=== PATIENT | female | born 1950 | race African-American/Black ===

== ENCOUNTER 2019-06-05 14:25 | Observation (INO) | payer MEDICARE ==
[~2019-06-05] VITALS: Ht 182.9 cm; Wt 106.6 kg
[~2019-06-05 14:25] MED LIST: ASPIR 8181 MG PO; ASPIRIN325 MG PO; CLOPIDOGREL75 MG PO; CRESTOR10 MG PO; FLUDROCORTISON0.1 MG PO; LANTUS 3ML100 UNITS/ SC; LYRICA25 MG PO; METOPROLOL SUCC25 MG PO; MIDODRINE HCL10 MG PO; NEPHRO-VITE TABL1 EA PO; PANTOPRAZOLE SO40 MG PO; RANEXA500 MG PO; RENA-VITE RX T1 EACH PO; RENVELA800 MG PO; SENSIPAR30 MG PO; ZOFRAN ODT4 MG SL; ZOFRAN4 MG PO
[2019-06-05 15:39] LABS: BASOPHILS % 0.4 % (0.0-1.0); EOSINOPHILS # (AUTO) 0.2 (0.0-0.4); EOSINOPHILS % 3.1 % (0.0-6.0); HEMATOCRIT 24.4 % (34.2-44.1); LYMPHOCYTES # (AUTO) 0.5 (1.0-3.2); LYMPHOCYTES % 9.8 % (18.0-39.1); MEAN CORPUSCULAR HEMOGLOBIN 29.3 pg (28-32); MEAN CORPUSCULAR HGB CONC 28.7 g/dL (31-35); MEAN CORPUSCULAR VOLUME 102.1 fL (81-99); MONOCYTES # (AUTO) 0.4 (0.2-0.8); MONOCYTES % 7.5 % (4.4-11.3); NEUTROPHILS # (AUTO) 4.1 (2.1-6.9); NEUTROPHILS % 78.8 % (38.7-80.0); PLATELET COUNT 206 x10e3/uL (140-360); RED BLOOD COUNT 2.39 x10e6/uL (3.6-5.1); RED CELL DISTRIBUTION WIDTH 16.9 % (11.7-14.4)
[2019-06-05 16:05] LABS: ALBUMIN 3.5 g/dL (3.5-5.0); ALBUMIN/GLOBULIN RATIO 1.1 (0.8-2.0); ANION GAP 12.3 mmol/L (8-16); CALCIUM 8.5 mg/dL (8.4-10.2); CREATININE, SERUM 5.53 mg/dL (0.57-1.11); POTASSIUM 4.3 mmol/L (3.5-5.1)
[2019-06-05] MEDS ORDERED: SODIUM CHLORIDE 0.9% 250ML 250 ML IV ONE (16:15)
[2019-06-05] MEDS ORDERED: SODIUM CHLORIDE FLUSH 10 ML SYR IV PRN (16:45)
[2019-06-05] MEDS ORDERED: ONDANSETRON HCL INJ 2MG/ML 2ML 2 MG/ML VIAL IV PRN (16:45)
--- NOTE | 2019-06-05 18:02 | Diagnostic Imaging Report ---
EXAMINATION: CHEST SINGLE (PORTABLE) COMPARISON: Report of chest x-ray performed 03/20/2009 INDICATION: Decreased hemoglobin ^SOB DISCUSSION: Frontal view of the chest obtained at 1744 hours. HEART AND MEDIASTINUM: The heart is enlarged. The thoracic aorta is mildly tortuous LINES: None. LUNGS: Central pulmonary vasculature is mildly prominent. The lungs are well inflated and clear. No pneumonia or pulmonary edema. PLEURA: No pleural effusion or pneumothorax. BONES AND SOFT TISSUES: Median sternotomy wires appear intact. The soft tissues are normal. IMPRESSION: Cardiomegaly and central pulmonary vascular congestion. This may be acute or chronic. No evidence of CHF. No infiltrates. Signed by: Dr. Ulysses Concepcion MD on 06/05/2019 5:59 PM
[2019-06-05 22:25] VITALS: BP 151/65
[2019-06-05 23:30] VITALS: BP 151/65
--- NOTE | 2019-06-06 00:21 | NUR ---
Spoke to luna with [facility] [phone], patient to have hemodialysis 06/06/19 to received 2 units of PRBCs.
[2019-06-06 02:23] VITALS: BP 151/65
[2019-06-06 04:00] VITALS: BP 149/63
[2019-06-06 06:55] LABS: BASOPHILS % 0.4 % (0.0-1.0); EOSINOPHILS # (AUTO) 0.2 (0.0-0.4); EOSINOPHILS % 3.7 % (0.0-6.0); LYMPHOCYTES # (AUTO) 0.6 (1.0-3.2); LYMPHOCYTES % 10.7 % (18.0-39.1); MEAN CORPUSCULAR HEMOGLOBIN 29.3 pg (28-32); MONOCYTES # (AUTO) 0.4 (0.2-0.8); MONOCYTES % 8.1 % (4.4-11.3); NEUTROPHILS # (AUTO) 4.2 (2.1-6.9); NEUTROPHILS % 76.9 % (38.7-80.0); PLATELET COUNT 143 x10e3/uL (140-360); RED BLOOD COUNT 2.05 x10e6/uL (3.6-5.1); RED CELL DISTRIBUTION WIDTH 16.6 % (11.7-14.4)
[2019-06-06 07:03] LABS: HEMATOCRIT 20.7 % (34.2-44.1)
[2019-06-06 08:17] VITALS: BP 123/56
[2019-06-06 09:00] VITALS: BP 123/56
[2019-06-06] MEDS ORDERED: SODIUM CHLORIDE 0.9% 1000ML 2,000 ML ONE (09:54)
[2019-06-06 11:54] VITALS: BP 145/57
--- NOTE | 2019-06-06 13:25 | NUR ---
Done with 2 units of blood with dialysis , no adverse reaction noted, Dr Lisa Mcgee here for rounds
--- NOTE | 2019-06-06 14:34 | NUR ---
Patient discharged home, no distress noted, daughter at bed side, transported via wheelchair to [facility]
--- NOTE | 2019-06-06 17:07 | Consultation ---
DATE OF CONSULTATION: 06/06/2019 REQUESTING PHYSICIAN: Bharat Mcgee MD. REASON FOR CONSULTATION: ESRD. Thank for allowing us to participate in Ms. Ambriz's care. HISTORY OF PRESENT ILLNESS: This is a 69-year-old female with history of diabetes, hypertension, peripheral vascular disease, and end-stage renal disease. Apparently has some trouble with the issues of bleeding both from her access and potentially a GI bleed, came with a hemoglobin of 6. She was originally instructed by her outpatient clinic to go to the ER because of this, there was some dyspnea. Currently, she is feeling better. Dialysis was performed to allow for PRBC transfusion safely. She tolerated without any problems. She normally dialyzes Saturday, Saturday, Saturday. PAST MEDICAL HISTORY: ESRD, anemia of CKD, hypertension, type 2 diabetes, peripheral vascular disease, right leg angioplasty, pending vascular exam of left leg secondary to hyperparathyroidism although she tells me her phosphorus is controlled. SOCIAL HISTORY: Does not abuse alcohol or smoke. FAMILY HISTORY: Diabetes. REVIEW OF SYSTEMS: CONSTITUTIONAL: Dyspnea. No fever or weakness. VASCULAR: Some bleeding from the access post dialysis for which an angiogram is pending of the fistula. GI: Denies nausea, vomiting. No definite hematochezia. RESPIRATORY: Dyspnea is better after blood transfusion. Rest of review is negative. PHYSICAL EXAMINATION: GENERAL: Lying in bed, no distress. Temperature 97.8, pulse 80, blood pressure 145/57. HEENT: Atraumatic. NECK: Unable to see JVD. CHEST: Clear at this time. Bilateral breath sounds equal. CARDIAC: Normal heart tones. Rhythm sounds regular. EXTREMITIES: 1 to 2+ edema on the right with diabetic shoe. Left shows trace to 1+ edema. ABDOMEN: Benign. NEUROLOGIC: Alert, appropriate. Speech is normal. VASCULAR: Pain right upper extremity AV fistula. LABORATORY DATA: Hemoglobin is 6 status post blood transfusion. K 5.3, creatinine 5.53, BUN 27, albumin is 3.5. ASSESSMENT: 1. End-stage renal disease. 2. Pending GI evaluation. 3. Anemia of chronic kidney disease, concern for bleeding issues. 4. Underlying diabetic hypertensive end-organ damage. PLAN: 1. Hemodialysis performed today. Blood transfusion is given. Please see my orders for details. 2. Get back to Saturday, Saturday, Saturday schedule unless can be discharged from a GI standpoint. We will follow along. MD LAVELL Scott/SHANELLE /[id number]
== END 2019-06-06 14:28 | disposition home or self-care (01) ==
LOC: ER 14:25 → ERHOLD 16:41 → MED/SURG2 22:28
DX: I12.0 Hypertensive chronic kidney disease with stage 5 chronic kidney disease or end stage renal disease (principal); E11.22 Type 2 diabetes mellitus with diabetic chronic kidney disease; N18.6 End stage renal disease; Z99.2 Dependence on renal dialysis; Z79.4 Long term (current) use of insulin; D63.1 Anemia in chronic kidney disease; E11.51 Type 2 diabetes mellitus with diabetic peripheral angiopathy without gangrene; E21.3 Hyperparathyroidism, unspecified
CPT/HCPCS: 36415 ×2; 71045; 80053; 82948; 85025 ×2; 86704; 86706; 86707; 86850; 86900; 86920; 87340; 87350; 99284; G0378 ×2; J7030; P9016

== ENCOUNTER 2019-07-10 15:17 | Observation (INO) | payer MEDICARE ==
[~2019-07-10] VITALS: Ht 157.5 cm; Wt 106.6 kg
--- OUTSIDE RECORDS SUMMARY | 2019-07-10 15:21 | XMS REPORT ---
Author Author [facility] Organization [facility] Address Unknown Phone Unavailable Care Team Providers Care Drop Press Hand Name Role Phone REBA (NON STAFF) PRIETO SWENSON MARIA L STERLING Unavailable Unavailable Payers Payer Name Policy Type Policy Number Effective Date Expiration Date [facility] [id number] 2019 00:00:00 Medicare A & B [id number] 2006 00:00:00 [facility] [id number] 2019 00:00:00 Medicare A & B [id number] 2006 00:00:00 Problems Condition Name Condition Details Condition Category Status Onset Date Resolution Date Last Treatment Date Treating Clinician Comments Congestive heart failure CHF (congestive heart failure) Problem Active 2014-01-08 00:00:00 Chest pain Chest pain Problem Active 2014-01-08 00:00:00 Gastrointestinal hemorrhage GI bleed Problem Active 2014-01-08 00:00:00 Allergies, Adverse Reactions, Alerts Allergy Name Allergy Type Status Severity Reaction(s) Onset Date Inactive Date Treating Clinician Comments Fentanyl Allergy to Substance Active Unknown HALLUCINATION 2019-04-03 00:00:00 Midazolam Allergy to Substance Active Unknown HALLUCINATION 2019-04-03 00:00:00 Medications Ordered Medication Name Filled Medication Name Start Date Stop Date Current Medication? Ordering Clinician Indication Dosage Frequency Signature (SIG) Comments Components Aspirin (Aspir 81) 81 Mg Tablet. Aspirin (Aspir 81) 81 Mg Tablet. Yes 81 Daily Clopidogrel Bisulfate (Clopidogrel) 75 Mg Tablet Clopidogrel Bisulfate (Clopidogrel) 75 Mg Tablet Yes 75 Daily Fludrocortisone Acetate 0.1 Mg Tab Fludrocortisone Acetate 0.1 Mg Tab Yes .1 Twice A Day Insulin Glargine (Lantus 3ML Pen) 100 Units/1 Ml Inj Insulin Glargine (Lantus 3ML Pen) 100 Units/1 Ml Inj Yes 15 Bedtime Pregabalin (Lyrica) 25 Mg Cap Pregabalin (Lyrica) 25 Mg Cap Yes 25 Twice A Day Sevelamer Hcl (Renvela) 800 Mg Tab Sevelamer Hcl (Renvela) 800 Mg Tab Yes 4 Three Times A Day Vit B Cmplx 3/Fa/Vit C/Biotin (Pennie-Sonny Rx Tablet) 1 Each Tablet Vit B Cmplx 3/Fa/Vit C/Biotin (Pennie-Sonny Rx Tablet) 1 Each Tablet Yes 1 Daily Aspirin 325 Mg Tablet, 325 Mg Oral Aspirin 325 Mg Tablet, 325 Mg Oral 2019-04-03 00:00:00 No 325 Daily Cinacalcet Hcl (Sensipar) 30 Mg Tablet, 30 Mg Oral Cinacalcet Hcl (Sensipar) 30 Mg Tablet, 30 Mg Oral 2019-04-03 00:00:00 No 30 Daily Folic Acid/Cyanocob/Pyridoxine (Nephro-Sonny Tablet) 1 Ea Tab, 1 Tab Oral Folic Acid/Cyanocob/Pyridoxine (Nephro-Sonny Tablet) 1 Ea Tab, 1 Tab Oral 2019-04-03 00:00:00 No 1 Daily Metoprolol Succinate 25 Mg Tab.er.24h, 25 Mg Oral Metoprolol Succinate 25 Mg Tab.er.24h, 25 Mg Oral 2019-04-03 00:00:00 No 25 Twice A Day Midodrine Hcl 10 Mg Tablet, 10 Mg Oral Midodrine Hcl 10 Mg Tablet, 10 Mg Oral 2019-04-03 00:00:00 No 10 Every 12 Hours Ondansetron (Zofran Odt) 4 Mg Tab.rapdis, 4 Mg Sublingual Ondansetron (Zofran Odt) 4 Mg Tab.rapdis, 4 Mg Sublingual 2019-04-03 00:00:00 No 4 Every 8 Hours as needed for Nausea Pantoprazole Sodium (Protonix) 40 Mg Tablet.dr, 40 Mg Oral Pantoprazole Sodium (Protonix) 40 Mg Tablet.dr, 40 Mg Oral 2019-04-03 00:00:00 No 40 Daily Ranolazine (Ranexa) 500 Mg Tabsr, 500 Mg Oral Ranolazine (Ranexa) 500 Mg Tabsr, 500 Mg Oral 2019-04-03 00:00:00 No 500 Twice A Day Ranolazine (Ranexa) 500 Mg Tabsr, 500 Mg Oral Ranolazine (Ranexa) 500 Mg Tabsr, 500 Mg Oral 2019-04-03 00:00:00 No 500 Twice A Day Rosuvastatin Calcium (Crestor) 10 Mg Tab, 10 Mg Oral Rosuvastatin Calcium (Crestor) 10 Mg Tab, 10 Mg Oral 2019-04-03 00:00:00 No 10 Bedtime Ondansetron Hcl (Zofran*) 4 Mg Tablet, 4 Mg Oral Ondansetron Hcl (Zofran*) 4 Mg Tablet, 4 Mg Oral 2014-01-09 00:00:00 No 4 Every 8 Hours Procedures and Interventions Procedure Date / Time Performed Performing Clinician ILIAC REVASC W/STENT 2019-04-07 00:00:00 KALEN GEE FEM/POPL REVASC W/STENT 2019-04-07 00:00:00 KALEN GEE CONTRAST EXAM ABDOMINL AORTA 2019-04-07 00:00:00 KALEN GEE ARTERY X-RAYS ARMS/LEGS 2019-04-07 00:00:00 KALEN GEE HEMODIALYSIS ONE EVALUATION 2019-04-07 00:00:00 ORIANA GUY Encounters Start Date/Time End Date/Time Encounter Type Admission Type Attending Clinicians Care Facility Care Department Encounter ID 2019-06-05 16:41:00 2019-06-06 14:28:00 Discharged Inpatient (obs) 1 MARIA L STERLING [facility] [id number] 2019-04-07 20:28:00 2019-04-08 15:19:00 Discharged Inpatient (obs) [facility] [id number] Results Test Description Test Time Test Comments Text Results Atomic Results Result Comments Bedside Glucose 2019-06-06 12:14:00 Bedside Glucose (test tcev=43358-5) 217 70-120 Meter ID: [id number] Blood Gcrjx5311-83-62 07:03:00* Test Item Value Reference Range Comments White Blood Count (test znmr=7577-6) 5.40 4.8-10.8 Red Blood Gborm2181-68-24 07:03:00* Test Item Value Reference Range Comments Red Blood Count (test xlnn=608-4) 2.05 3.6-5.1 Xbhdwohlhx6491-84-55 07:03:00* Test Item Value Reference Range Comments Hemoglobin (test cwvk=73547-4) 6.0 12.0-16.0 Results repeated and called to DINH WOLF RN at 0702 on 06/06/19 by Mary Ellen Forman. Read back and verified.Uchzectodz6632-71-12 07:03:00* Test Item Value Reference Range Comments Hematocrit (test yoqo=3547-4) 20.7 34.2-44.1 Results called to DINH WOLF RN at 0702 on 06/06/19 by Mary Ellen Forman. RB O K.Mean Corpuscular Evnmff3789-89-55 07:03:00* Test Item Value Reference Range Comments Mean Corpuscular Volume (test xiub=398-6) 101.0 81-99 Mean Corpuscular Xelffrindy6080-54-44 07:03:00* Test Item Value Reference Range Comments Mean Corpuscular Hemoglobin (test nbfp=442-3) 29.3 28-32 Mean Corpuscular Hemoglobin Zzxuklv4911-36-48 07:03:00* Test Item Value Reference Range Comments Mean Corpuscular Hemoglobin Concent (test dmrl=496-1) 29.0 31-35 Red Cell Distribution Ixocp7955-59-28 07:03:00* Test Item Value Reference Range Comments Red Cell Distribution Width (test zafq=96080-4) 16.6 11.7-14.4 Platelet Seiet2182-57-91 07:03:00* Test Item Value Reference Range Comments Platelet Count (test bexf=684-4) 143 140-360 Neutrophils (%) (Auto)2019-06-06 07:03:00* Test Item Value Reference Range Comments Neutrophils (%) (Auto) (test fndb=94237-8) 76.9 38.7-80.0 Lymphocytes (%) (Auto)2019-06-06 07:03:00* Test Item Value Reference Range Comments Lymphocytes (%) (Auto) (test iein=567-1) 10.7 18.0-39.1 Monocytes (%) (Auto)2019-06-06 07:03:00* Test Item Value Reference Range Comments Monocytes (%) (Auto) (test odsw=5349-1) 8.1 4.4-11.3 Eosinophils (%) (Auto)2019-06-06 07:03:00* Test Item Value Reference Range Comments Eosinophils (%) (Auto) (test tvmz=143-4) 3.7 0.0-6.0 Basophils (%) (Auto)2019-06-06 07:03:00* Test Item Value Reference Range Comments Basophils (%) (Auto) (test fghi=897-0) 0.4 0.0-1.0 IM GRANULOCYTES %2019-06-06 07:03:00* Test Item Value Reference Range Comments IM GRANULOCYTES % (test code=IM GRANULOCYTES %) 0.2 0.0-1.0 Neutrophils # (Auto)2019-06-06 07:03:00* Test Item Value Reference Range Comments Neutrophils # (Auto) (test jrjl=843-9) 4.2 2.1-6.9 Lymphocytes # (Auto)2019-06-06 07:03:00* Test Item Value Reference Range Comments Lymphocytes # (Auto) (test jfcr=07689-9) 0.6 1.0-3.2 Monocytes # (Auto)2019-06-06 07:03:00* Test Item Value Reference Range Comments Monocytes # (Auto) (test bats=535-0) 0.4 0.2-0.8 Eosinophils # (Auto)2019-06-06 07:03:00* Test Item Value Reference Range Comments Eosinophils # (Auto) (test airx=420-2) 0.2 0.0-0.4 Basophils # (Auto)2019-06-06 07:03:00* Test Item Value Reference Range Comments Basophils # (Auto) (test qulb=803-0) 0.0 0.0-0.1 Absolute Immature Granulocyte (iiho1376-71-47 07:03:00* Test Item Value Reference Range Comments Absolute Immature Granulocyte (auto (test code=Absolute Immature Granulocyte (auto) 0.01 0-0.1 CHEST SINGLE (PORTABLE)2019-06-05 17:57:00 [place] [address] Patient Name: CHAPARRITA STEPHENSON MR #: [id number] : 1950 Age/Sex: 69/F Req #: [id number] Adm Physician: MARIA L STERLING MD Ordered by: LYLY GAY NP Report #: [id number] Location: [facility] Room/Bed: [place] [address] Procedure: [id number] D X/CHEST SINGLE (PORTABLE) Exam Date: Exam Time: REPORT STATUS: Signed EXAMINATION: CHEST SINGLE (PORTABLE) COMPARISON: Report of chest x-ray performed 1 05/21/2008 INDICATION: Decreased hemoglobin SOB DISCUSSION: Fro ntal view of the chest obtained at 1744 hours. HEART AND MEDIASTINUM: The heart is enlarged. The thoracic aorta is mildly tortuous LINES: None. LUNGS: Central pulmonary vasculature is mildly prominent. The lungs are well inflated and clear. No pneumonia or pulmonary edema. PLEURA: No pleural effusion or pneumothorax. BONES AND SOFT TISSUES: Median sternotomy wires appear intact. The soft tissues are normal. IMPRESSION: Cardiomeg edouard and central pulmonary vascular congestion. This may be acute or chronic. N o evidence of CHF. No infiltrates. Signed by: Dr. Chava Concepcion MD on 06/05/2019 5:59 PM Dictated By: CHAVA CONCEPCION MD Electronically Norah d By: CHAVA CONCEPCION MD on 06/05/191758 Transcribed By: SANA on 06/05/191758 COPY TO: LYLY GAY MOLDING ROOM SUPERVISOR Sodium Qrmxw9444-04-05 16:06:00* Test Item Value Reference Range Comments Sodium Level (test mrll=4444-3) 138 136-145 Potassium Uvfey6729-44-84 16:06:00* Test Item Value Reference Range Comments Potassium Level (test qocv=2497-2) 4.3 3.5-5.1 Chloride Csqdf1914-70-18 16:06:00* Test Item Value Reference Range Comments Chloride Level (test juzx=3391-5) 102 98-107 Carbon Dioxide Naooi1724-29-49 16:06:00* Test Item Value Reference Range Comments Carbon Dioxide Level (test fsgq=2972-5) 28 22-29 Anion Whr6439-95-42 16:06:00* Test Item Value Reference Range Comments Anion Gap (test czxa=61159-3) 12.3 8-16 Blood Urea Xmzjzekf3951-10-54 16:06:00* Test Item Value Reference Range Comments Blood Urea Nitrogen (test yjgo=5191-5) 27 7-26 Xsnqfdrhye8332-84-67 16:06:00* Test Item Value Reference Range Comments Creatinine (test jnts=8777-7) 5.53 0.57-1.11 BUN/Creatinine Tbicj4224-49-04 16:06:00* Test Item Value Reference Range Comments BUN/Creatinine Ratio (test erki=7458-6) 5 6-25 Estimat Glomerular Filtration Jnwh7447-70-27 16:06:00* Test Item Value Reference Range Comments Estimat Glomerular Filtration Rate (test slca=242124676) 9 >60 Ranges were taken from the National Kidney Disease Education Program and the [facility] [employer] literature.Reference ranges:60 or greater: Awhwtz14-82 ( for 3 consecutive months): Chronic kidney disease 15 or less: Kidney failure Glucose Nvrxq7198-70-66 16:06:00* Test Item Value Reference Range Comments Glucose Level (test mfgx=IGI2394) 212 74-118 Calcium Vbpqz9861-96-13 16:06:00* Test Item Value Reference Range Comments Calcium Level (test gvhq=73011-6) 8.5 8.4-10.2 Total Riiapiwiz2136-10-10 16:06:00* Test Item Value Reference Range Comments Total Bilirubin (test xmli=5189-5) 0.3 0.2-1.2 Aspartate Amino Transf (AST/SGOT)2019-06-05 16:06:00* Test Item Value Reference Range Comments Aspartate Amino Transf (AST/SGOT) (test code=Aspartate Amino Transf (AST/SGOT)) 49 5-34 Alanine Aminotransferase (ALT/SGPT)2019-06-05 16:06:00* Test Item Value Reference Range Comments Alanine Aminotransferase (ALT/SGPT) (test xblm=0013-1) 25 0-55 Total Kgwuymm6085-95-82 16:06:00* Test Item Value Reference Range Comments Total Protein (test fquv=1776-8) 6.8 6.5-8.1 Rmjecae0127-33-26 16:06:00* Test Item Value Reference Range Comments Albumin (test jwdo=1225-2) 3.5 3.5-5.0 Vfwsjnwh2263-55-07 16:06:00* Test Item Value Reference Range Comments Globulin (test prtg=83279-8) 3.3 2.3-3.5 Albumin/Globulin Fsxfl6786-21-77 16:06:00* Test Item Value Reference Range Comments Albumin/Globulin Ratio (test tbsb=6714-6) 1.1 0.8-2.0 Alkaline Bcwqoisxxcj8712-75-28 16:06:00* Test Item Value Reference Range Comments Alkaline Phosphatase (test usvm=0563-1) 75 40-150 Hepatitis Be Yrzmzypt2022-29-16 23:08:00* Test Item Value Reference Range Comments Hepatitis Be Antibody (test vpbu=47654-6) Positive Negative Performed at: [address] [id number] Product Specialist: Kiko Mars MD, Phone: [phone] B Core Total Yitjqqkh2757-50-25 11:16:00* Test Item Value Reference Range Comments Hepatitis B Core Total Antibody (test qtwu=39504-7) Positive Negative Hepatitis B Surface Ctlmkvy4244-75-22 11:16:00* Test Item Value Reference Range Comments Hepatitis B Surface Antigen (test acrq=5200-9) Negative Negative Hepatitis B Core IgM Acxicwvl0032-25-19 11:16:00* Test Item Value Reference Range Comments Hepatitis B Core IgM Antibody (test zkov=69520-6) Negative Negative Performed at: - [facility] [address] [id number] Director: Nico Marshall MD, Phone: [phone]
[2019-07-10 17:09] LABS: BASOPHILS % 0.2 % (0.0-1.0); EOSINOPHILS % 0.3 % (0.0-6.0); LYMPHOCYTES # (AUTO) 0.6 (1.0-3.2); LYMPHOCYTES % 4.5 % (18.0-39.1); MEAN CORPUSCULAR HEMOGLOBIN 28.2 pg (28-32); MEAN CORPUSCULAR HGB CONC 29.4 g/dL (31-35); MEAN CORPUSCULAR VOLUME 96.2 fL (81-99); MONOCYTES # (AUTO) 0.8 (0.2-0.8); MONOCYTES % 6.4 % (4.4-11.3); NEUTROPHILS # (AUTO) 10.7 (2.1-6.9); PLATELET COUNT 168 x10e3/uL (140-360); RED BLOOD COUNT 2.09 x10e6/uL (3.6-5.1); RED CELL DISTRIBUTION WIDTH 16.6 % (11.7-14.4)
[2019-07-10 17:10] LABS: HEMATOCRIT 20.1 % (34.2-44.1); HEMOGLOBIN 5.9 g/dL (12.0-16.0)
[2019-07-10] MEDS ORDERED: SODIUM CHLORIDE 0.9% 250ML 250 ML IV ONE (17:15)
[2019-07-10 17:18] LABS: INR 1.23; PARTIAL THROMBOPLASTIN TIME 38.1 seconds (23.8-35.5); PROTHROMBIN TIME 16.3 seconds (11.9-14.5)
[2019-07-10 17:27] LABS: ALBUMIN 3.4 g/dL (3.5-5.0); ANION GAP 17.2 mmol/L (8-16); CALCIUM 9.7 mg/dL (8.4-10.2); CREATININE, SERUM 9.43 mg/dL (0.57-1.11); POTASSIUM 4.2 mmol/L (3.5-5.1)
--- NOTE | 2019-07-10 20:10 | NUR ---
1st unit of blood started. v.s.s
--- NOTE | 2019-07-10 21:45 | NUR ---
received patient from ER patient is awake and talking. patient has been helped into the bed. bed is in the lowest position and call light is within reach. Will continue to monitor patient.
--- NOTE | 2019-07-10 22:10 | NUR ---
1 unit of blood is done transfusing. No adverse reaction noted.
[2019-07-10 22:37] VITALS: BP 152/55
[2019-07-10 22:43] VITALS: BP 152/55
[2019-07-10] MEDS ORDERED: GABAPENTIN300 MG PO (23:02)
[2019-07-10] MEDS ORDERED: ATORVASTATIN CA20 MG PO (23:02)
[2019-07-10] MEDS: INSULIN GLARGINE 100 UNITS/ML VIAL SQ SCH (23:48)
[2019-07-10] MEDS ORDERED: SODIUM CHLORIDE 0.9% 250ML 250 ML ONE (23:58)
[2019-07-11] VITALS (8 sets, daily range): BP systolic 134–152; BP diastolic 60–69
--- NOTE | 2019-07-11 | NUR ---
second unit of blood is transfusing. no adverse reaction noted. will continue to monitor patients blood infusion process.
[2019-07-11] MEDS: GABAPENTIN 300 MG CAP PO SCH ×4 (00:28→22:10)
--- NOTE | 2019-07-11 02:55 | NUR ---
second unit of blood is done transfusing. No adverse reactions noted.
[2019-07-11 05:50] LABS: BASOPHILS % 0.2 % (0.0-1.0); EOSINOPHILS # (AUTO) 0.2 (0.0-0.4); EOSINOPHILS % 1.7 % (0.0-6.0); HEMOGLOBIN 7.3 g/dL (12.0-16.0); LYMPHOCYTES # (AUTO) 0.5 (1.0-3.2); MEAN CORPUSCULAR HEMOGLOBIN 28.3 pg (28-32); MEAN CORPUSCULAR HGB CONC 30.4 g/dL (31-35); MONOCYTES # (AUTO) 0.7 (0.2-0.8); MONOCYTES % 6.9 % (4.4-11.3); NEUTROPHILS # (AUTO) 8.4 (2.1-6.9); NEUTROPHILS % 85.9 % (38.7-80.0); PLATELET COUNT 139 x10e3/uL (140-360); RED BLOOD COUNT 2.58 x10e6/uL (3.6-5.1); RED CELL DISTRIBUTION WIDTH 15.7 % (11.7-14.4)
[2019-07-11 06:15] LABS: ANION GAP 13.7 mmol/L (8-16); CALCIUM 9.4 mg/dL (8.4-10.2); CREATININE, SERUM 10.14 mg/dL (0.57-1.11); POTASSIUM 4.7 mmol/L (3.5-5.1)
[2019-07-11 06:33] LABS: ALBUMIN 2.9 g/dL (3.5-5.0)
--- NOTE | 2019-07-11 07:15 | NUR ---
RECEIVED REPORT FROM OPERATIONS INTELLIGENCE NURSE, PATIENT IS SLEEPING IN BED, NO DISTRESS NOTED.
[2019-07-11] MEDS ORDERED: GABAPENTIN 300 MG CAP PO SCH (09:00)
[2019-07-11] MEDS: ASPIRIN 81 MG CHEW TAB PO SCH (10:07)
[2019-07-11] MEDS: SEVELAMER CARBONATE 800 MG TAB PO SCH ×3 (10:07→22:10)
[2019-07-11] MEDS: CLOPIDOGREL BISULFATE 75 MG TAB PO SCH (10:07)
[2019-07-11] MEDS: FLUDROCORTISONE ACETATE 0.1 MG TAB PO SCH ×2 (10:07→16:03)
[2019-07-11 11:36] LABS: BASOPHILS % 0.2 % (0.0-1.0); EOSINOPHILS # (AUTO) 0.2 (0.0-0.4); EOSINOPHILS % 1.7 % (0.0-6.0); HEMATOCRIT 26.3 % (34.2-44.1); HEMOGLOBIN 8.2 g/dL (12.0-16.0); LYMPHOCYTES # (AUTO) 0.6 (1.0-3.2); LYMPHOCYTES % 5.7 % (18.0-39.1); MEAN CORPUSCULAR HGB CONC 31.2 g/dL (31-35); MEAN CORPUSCULAR VOLUME 92.9 fL (81-99); MONOCYTES # (AUTO) 0.6 (0.2-0.8); MONOCYTES % 5.9 % (4.4-11.3); NEUTROPHILS # (AUTO) 8.3 (2.1-6.9); NEUTROPHILS % 86.2 % (38.7-80.0); PLATELET COUNT 157 x10e3/uL (140-360); RED BLOOD COUNT 2.83 x10e6/uL (3.6-5.1); RED CELL DISTRIBUTION WIDTH 15.8 % (11.7-14.4)
--- NOTE | 2019-07-11 11:46 | Consultation ---
DATE OF CONSULTATION: 07/11/2019 Nephrology Consultation Note REASON FOR CONSULTATION: ESRD. REFERRING PHYSICIAN: ER physician. HISTORY OF PRESENT ILLNESS: This is a 69-year-old female with past medical history of ESRD on hemodialysis on a Saturday, Saturday, and Saturday schedule through the right chest PermCath with last dialysis almost 4 days ago, status post hysterectomy, knee replacement surgery, back surgery, diabetes mellitus, hypertension, CVA, coronary artery disease and right chest PermCath placement, who was admitted for possibly blood transfusion with a hemoglobin of close to 6. At the time of my examination, she appeared in no acute distress and denies any nausea, vomiting, headache, blurring of vision, chest pain, shortness of breath, abdominal pain, diarrhea, bleeding in the stools, urinary problems, skin rash, joint pains, or any focal weakness. PAST MEDICAL HISTORY: As above. PAST SURGICAL HISTORY: As above. PERSONAL AND SOCIAL HISTORY: No history of alcohol or tobacco. MEDICATIONS: See the medication sheet that was reviewed. PHYSICAL EXAMINATION: VITAL SIGNS: Blood pressure 152/67, respirations 18, heart rate 80, and temperature 98.9. HEENT: Head was atraumatic, normocephalic. Pupils are react to light. Mouth, oral mucosa was moist. NECK: Supple. CHEST: Fair air entry. HEART: S1, S2. ABDOMEN: Obese, but soft. Bowel sounds are positive. EXTREMITIES: Trace edema. GRANULIZING MACHINE OPERATOR: She was awake and alert. Cranial nerves are intact. No gross motor deficit noted. LABORATORY DATA: White cell count of 9.8, hemoglobin 7.3, it was 5.9 yesterday, hematocrit 24, and platelets 139. Sodium 138, potassium 4.7, chloride 97, CO2 of 32, BUN 62, and creatinine 10.1. Albumin 2.9. IMPRESSION: 1. End-stage renal disease, on hemodialysis on a Saturday, Saturday, and Saturday schedule with no significant volume overload or hyperkalemia. 2. Severe anemia, rule out gastrointestinal bleeding. PLAN: Strict I's and O's. Hepatitis surface antigen, CBC, and BMP in a.m. Epogen 10,000 units subcutaneously with every dialysis. Dialysis later today for 3.5 hours, 140 sodium, 35 bicarb, 2.5 potassium, 2.5 calcium, blood flow of 350, dialysis flow of 700 with UF of 2-3 as tolerated and she can receive 1-2 units of packed RBCs on dialysis as well. Further recommendations to follow. Thank you for the consultation. Bry Mitchell MD SA/SHANELLE /[id number]
[2019-07-11 11:52] LABS: ANION GAP 15.7 mmol/L (8-16); CALCIUM 9.6 mg/dL (8.4-10.2); CREATININE, SERUM 10.56 mg/dL (0.57-1.11); POTASSIUM 4.7 mmol/L (3.5-5.1)
--- NOTE | 2019-07-11 11:53 | NUR ---
CALLED [facility] TO NOTIFY THEM OF PATIENT. [facility] WILL CALL BACK WITH ESTIMATED TIME OF DIALYSIS TODAY.
--- NOTE | 2019-07-11 13:25 | NUR ---
LIVES AT HOME W/ FAMILY EMERGENCY CONTACT: DAUGHTER: ERINN COOPER [phone] PCP: PRIETO ALEJANDRA HEMODIALYSIS: HOME HEALTH: NONE, DME: NONE RETIRED DC PLAN: RETURN HOME W/ FAMILY WHEN MEDICALLY CLEARED
[2019-07-11] MEDS ORDERED: DEXTROSE 50% SYRINGE 50 ML IV PRN (16:45)
[2019-07-11] MEDS: INSULIN LISPRO 100 UNIT/1 ML 3ML VIAL SQ SCH ×2 (17:23→22:06)
[2019-07-11] MEDS ORDERED: SODIUM CHLORIDE 0.9% 1000ML 2,000 ML ONE (17:30)
[2019-07-11] MEDS ORDERED: EPOETIN ALFA-EPBX 10,000 UNIT/ML VIAL SC SCH (18:00)
--- NOTE | 2019-07-11 19:00 | NUR ---
PT EDUCATED ON NOTHING TO DRINK OR EAT AFTER MIDNIGHT FOR EGD PROCEDURE TOMORROW WITH DR. Trevin STERLING. PATIENT VERBALIZED UNDERSTANDING.
--- NOTE | 2019-07-11 19:27 | NUR ---
HYDROELECTRIC PLANT STRUCTURAL ENGINEER NOTIFIED OF PT HAVING EGD TOMORROW @[address] Trevin STERLING.
--- NOTE | 2019-07-11 19:27 | NUR ---
GAVE REPORT TO FAMILY LAW LEGAL ASSISTANT NURSE, PATIENT AWAKE IN BED, A&OX3, RECEIVING DIALYSIS. NO DISTRESS NOTED. BED LOW AND LOCKED, SIDE RAILS UPX2, CALL LIGHT WITHIN REACH
--- NOTE | 2019-07-11 19:27 | NUR ---
RECEIVED SHIFT REPORT FROM DAY RN. pT ALERT AND ORIENTED X3. RESTING IN SEMI-FOWLERS IN BED RECEIVING DIALYSIS. RESPIRATIONS ARE EVEN AND UNLABORED. HOB ELEVATED. REMAINS ON RA. CALL LIGHT WITHIN REACH. 18 G SL IN LEFT AC - INTACT AND FLUSHES EASILY. BED IN LOW POSITION. PT AWARE NPO AFTER 12 MN FOR EGD IN AM.
[2019-07-11] MEDS ORDERED: MIDAZOLAM HCL 2 MG/2 ML VIAL ONE (19:55)
[2019-07-11] MEDS ORDERED: NON-FORMULARY MEDICATION (Insulin Glargine (Lantus 3ML Pen) 20 UNITS) SC SCH (21:00)
[2019-07-11] MEDS ORDERED: INSULIN LISPRO 100 UNIT/1 ML 3ML VIAL SQ SCH (21:00)
[2019-07-11] MEDS: INSULIN GLARGINE 100 UNITS/ML VIAL SQ SCH (22:07)
[2019-07-11] MEDS: ATORVASTATIN 20 MG TAB PO SCH (22:10)
[2019-07-12] VITALS (8 sets, daily range): BP systolic 109–157; BP diastolic 54–66
--- NOTE | 2019-07-12 | NUR ---
PT C/O OF PAIN LEFT SIDE AFTER DIALYSIS. PAIN RESOLVED. TELE SR. WILL CONTINUE TO MONITOR FOR DISCOMFORT.
--- NOTE | 2019-07-12 06:31 | NUR ---
PT REPORT PAIN DECREASE AND ABLE TO GO TO SLEEP. CONSENT FOR EGD SIGNED. PT WANTING TO GET PROCEDURE DONE TODAY SO SHE CN GO HOME. SATURDAY SHE IS HAVING SURGERY ON HER RT FOOT. PT REQUESTED DR PORTER TO GIVE DAUGHTER- NAMES WRITTEN DOWN FOR PT.
[2019-07-12] MEDS: INSULIN LISPRO 100 UNIT/1 ML 3ML VIAL SQ SCH ×4 (07:30→22:06)
[2019-07-12 07:37] LABS: BASOPHILS % 0.3 % (0.0-1.0); EOSINOPHILS # (AUTO) 0.2 (0.0-0.4); EOSINOPHILS % 2.2 % (0.0-6.0); HEMATOCRIT 29.3 % (34.2-44.1); HEMOGLOBIN 8.9 g/dL (12.0-16.0); LYMPHOCYTES # (AUTO) 0.5 (1.0-3.2); LYMPHOCYTES % 7.2 % (18.0-39.1); MEAN CORPUSCULAR HEMOGLOBIN 28.4 pg (28-32); MEAN CORPUSCULAR HGB CONC 30.4 g/dL (31-35); MEAN CORPUSCULAR VOLUME 93.6 fL (81-99); MONOCYTES # (AUTO) 0.6 (0.2-0.8); MONOCYTES % 8.4 % (4.4-11.3); NEUTROPHILS # (AUTO) 5.7 (2.1-6.9); NEUTROPHILS % 81.5 % (38.7-80.0); PLATELET COUNT 177 x10e3/uL (140-360); RED BLOOD COUNT 3.13 x10e6/uL (3.6-5.1); RED CELL DISTRIBUTION WIDTH 15.5 % (11.7-14.4)
[2019-07-12 07:55] LABS: ALBUMIN/GLOBULIN RATIO 0.9 (0.8-2.0); ANION GAP 15.3 mmol/L (8-16); CALCIUM 9.5 mg/dL (8.4-10.2); CREATININE, SERUM 6.13 mg/dL (0.57-1.11); POTASSIUM 4.3 mmol/L (3.5-5.1)
[2019-07-12] MEDS: ASPIRIN 81 MG CHEW TAB PO SCH ×2 (08:32→11:57)
[2019-07-12] MEDS: DEXTROSE 5%/0.9% SOD CHL 1,000 ML IV SCH ×2 (08:32→21:35)
[2019-07-12] MEDS: GABAPENTIN 300 MG CAP PO SCH ×3 (08:32→22:12)
[2019-07-12] MEDS: FLUDROCORTISONE ACETATE 0.1 MG TAB PO SCH ×2 (08:32→11:57)
[2019-07-12] MEDS: SEVELAMER CARBONATE 800 MG TAB PO SCH ×3 (08:33→16:54)
[2019-07-12] MEDS: CLOPIDOGREL BISULFATE 75 MG TAB PO SCH ×2 (08:33→11:58)
--- NOTE | 2019-07-12 08:56 | NUR ---
WENT TO OR FOR EGD
[2019-07-12] MEDS ORDERED: PANTOPRAZOLE 40 MG 10ML VIAL IV NR (10:01)
[2019-07-12] MEDS: PANTOPRAZOLE 40 MG 10ML VIAL IV SCH ×2 (10:15→23:58)
--- NOTE | 2019-07-12 10:53 | Operative Report ---
DATE OF PROCEDURE: 07/12/2019 SURGEON: Donte Mcgee MD INDICATION FOR EGD: Anemia, history of melena. MEDICATIONS: The patient was done under MAC, please see anesthesiologist's note. PROCEDURE IN DETAIL: With the patient in left lateral decubitus position, a flexible fiberoptic Olympus therapeutic gastroscope was introduced into the esophagus under direct visualization without any difficulty. There was some patchy erythema noted in distal esophagus. The scope was then advanced with ease into the stomach, traversing a small sliding hiatal hernia. Some minute erosions were noted in the antrum of the stomach along with some patchy intense erythema and biopsies were obtained and sent to stain for H pylori. Minimally oozing arteriovenous malformation midbody, greater curvature was noted and that was fulgurated with size 10-[place]atorial [place] scope probe. Pylorus was of normal contour and shape was intubated with ease and the scope was advanced all the way to the second portion of the duodenum. An AVM was noted in the proximal second portion that was fulgurated, also size 10-[place]atorial [place] Gold probe. A minute ulcer was noted in the duodenal bulb without active bleeding or stigmata of recent hemorrhage. The scope was then withdrawn back into the stomach and retroflexed mucosa overlying the fundus and cardia appeared to be within normal limits. The scope was then straightened out and it was subsequently withdrawn and patient tolerated the procedure well. IMPRESSION: 1. Distal esophagitis, mild. 2. Small hiatal hernia. 3. Gastritis, erosive, antrum biopsied. 4. Minimally oozing arteriovenous malformation, midbody, greater curvature, fulgurated for the size 10-[place]atorial [place] Gold Probe with excellent hemostasis. 5. Duodenal bulb ulcer, minute without active bleeding or stigmata of recent hemorrhage. 6. 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 PLAN: Follow up histology. Initiate Protonix 40 mg one p.o. a.c. b.i.d. and Carafate 1 g p.o. a.c. t.i.d. and at bedtime. The patient will need a screening colonoscopy which can be done on an outpatient basis. Donte Mcgee MD [facility]/MODL /[id number] cc: Abhishek Reyes MD
[2019-07-12] MEDS: SUCRALFATE 1 GM TAB PO SCH ×3 (11:56→21:03)
--- NOTE | 2019-07-12 19:18 | NUR ---
BEDSIDE SHIFT REPORT RECEIVED FROM DAY RN. PT IS ALERT AND ORIENTED X3. RESPIRATIONS ARE EVEN AND UNLABORED. AV FISTULA ON RT UPPER ARM. SL 20G LEFT AC. TELE ON. CALL LIGHT WITHIN REACH. BED IN LOW POSITION. DIALYSIS IN AM THEN POSSIBLE DISCHARGE.
[2019-07-12] MEDS ORDERED: PROPOFOL IV EMULSION 10 MG/ML 20 ML VIAL ONE (19:34)
[2019-07-12] MEDS ORDERED: LIDOCAINE HCL 2% LOCAL INJ 5 ML SDV VIAL INJ ONE (19:34)
[2019-07-12] MEDS ORDERED: GLUCAGON FOR INJ 1 MG VIAL ONE (19:34)
[2019-07-12] MEDS: INSULIN GLARGINE 100 UNITS/ML VIAL SQ SCH (22:06)
[2019-07-12] MEDS: ATORVASTATIN 20 MG TAB PO SCH (22:12)
[2019-07-13] VITALS (8 sets, daily range): BP systolic 108–176; BP diastolic 54–77
--- NOTE | 2019-07-13 05:30 | NUR ---
dr francis made rounds this am and said pt could go home aftr dialysis today.
--- NOTE | 2019-07-13 06:26 | Discharge Summary ---
DISCHARGE DIAGNOSES: 1. Gastrointestinal bleed. 2. Anemia. 3. End-stage renal disease. 4. Diabetes. 5. Hypertension. 6. Hyperlipidemia. DISPOSITION: The patient was discharged home. The patient is to follow up in 1 to 2 weeks with her primary care physician. HISTORY OF PRESENT ILLNESS AND HOSPITAL COURSE: See hospital chart for full details. The patient is a lady, who came in with severe shortness of breath and fatigue, where she was found to be with symptomatic anemia with a hemoglobin of 5.9 with some non-melenic stools, so she was admitted. She was brought in and given transfusion with 2 units with significant improvement, resolution of all her symptoms. Post transfusion, hemoglobin was 8.9. She was seen by Dr. Donte Mcgee, who performed EGD, who found some gastritis as well as some AVMs that he fulgurated. She was discharged home with Protonix 40 mg b.i.d. The patient is to follow up with GI as well as her PCP in 1 to 2 weeks. Please see hospital chart for details. MD JEFRY Jacobs/SHANELLE /[id number]
--- NOTE | 2019-07-13 07:14 | NUR ---
bedside change of shift report received from AUGUST Mcwilliams. pt awake, alert, in stable condition. will continue to monitor.
[2019-07-13] MEDS: INSULIN LISPRO 100 UNIT/1 ML 3ML VIAL SQ SCH ×3 (07:30→17:14)
[2019-07-13] MEDS: DEXTROSE 5%/0.9% SOD CHL 1,000 ML IV SCH (10:55)
[2019-07-13] MEDS: SUCRALFATE 1 GM TAB PO SCH ×3 (11:02→17:48)
[2019-07-13] MEDS: SEVELAMER CARBONATE 800 MG TAB PO SCH (11:03)
[2019-07-13] MEDS: FLUDROCORTISONE ACETATE 0.1 MG TAB PO SCH (11:03)
[2019-07-13] MEDS: GABAPENTIN 300 MG CAP PO SCH (11:03)
[2019-07-13] MEDS: ASPIRIN 81 MG CHEW TAB PO SCH (11:04)
[2019-07-13] MEDS: CLOPIDOGREL BISULFATE 75 MG TAB PO SCH (11:04)
[2019-07-13] MEDS: PANTOPRAZOLE 40 MG 10ML VIAL IV SCH (11:05)
--- NOTE | 2019-07-13 13:06 | NUR ---
pt waiting to have dialysis; no flight engineer manager on site at this time for pt. paging Dr. Contreras regarding hemodialysis orders.
--- NOTE | 2019-07-13 14:09 | NUR ---
paging Dr. Contreras again. still no callback.
--- NOTE | 2019-07-13 14:57 | NUR ---
spoke with Dr. Contreras who states pt to have hemodialysis today; spoke with dialysis nurse who [facility].
--- NOTE | 2019-07-13 15:20 | NUR ---
[facility] regarding ETA of dialysis nurse. Addendum: 07/13/19 at 1522 by Jessie Mendez RN spoke with Luz who will page the on-call nurse. she was notified pt is pending discharge.
[2019-07-13] MEDS ORDERED: SEVELAMER CARBONATE 800 MG TAB PO SCH (16:30)
[2019-07-13] MEDS ORDERED: FLUDROCORTISONE ACETATE 0.1 MG TAB PO SCH (17:00)
--- NOTE | 2019-07-13 18:53 | NUR ---
dialysis nurse, Gloria, arrived at pt's bedside for dialysis.
[2019-07-13] MEDS ORDERED: SODIUM CHLORIDE 0.9% 1000ML 1,000 ML ONE (18:58)
--- NOTE | 2019-07-13 19:00 | NUR ---
RECEIVED PATIENT IN BEDSIDE SHIFT REPORT. PATIENT RESTING IN BED AT THIS TIME. HEMODIALYSIS STARTING. NO PAIN REPORTED. NO S&S OF DISTRESS NOTED. BED LOCKED IN LOWEST POSITION, SIDE RAILS UPX2, CALL LIGHT IN REACH.
--- NOTE | 2019-07-13 23:20 | NUR ---
PATIENT DISCHARGED AT THIS TIME AFTER RECEIVING HEMODIALYSIS, 2.5L REMOVED. IV REMOVED AT 2250, CATHETER TIP INTACT, PRESSURE DRESSING APPLIED. VITAL SIGNS STABLE. DISCHARGE INSTRUCTIONS GIVEN, FOLLOW UP WITH PCP AND FOLLOW UP WITH MD Trevin STERLING, OFFICE INFORMATION GIVEN. NO QUESTIONS AT THIS TIME. PATIENT ACCOMPANIED BY STAFF VIA WHEELCHAIR TO PERSONAL AUTO, FAMILY MEMBER PICKED UP AT FRONT ENTRANCE. ALL BELONGINGS TRANSPORTED WITH PATIENT. PATIENT SEEN SAFELY INTO CAR.
[2019-07-14] MEDS ORDERED: GABAPENTIN 300 MG CAP PO SCH (09:00)
== END 2019-07-13 23:23 | disposition home or self-care (01) ==
LOC: ER 15:17 → ERHOLD 18:36 → MED/SURG 22:09
PROVIDERS: ADMIT Internal Medicine; ATTEND Internal Medicine
DX: K55.21 Angiodysplasia of colon with hemorrhage (principal); D50.0 Iron deficiency anemia secondary to blood loss (chronic); K20.9 Esophagitis, unspecified; K44.9 Diaphragmatic hernia without obstruction or gangrene; K29.71 Gastritis, unspecified, with bleeding; K26.4 Chronic or unspecified duodenal ulcer with hemorrhage; E11.22 Type 2 diabetes mellitus with diabetic chronic kidney disease; I12.0 Hypertensive chronic kidney disease with stage 5 chronic kidney disease or end stage renal disease; N18.6 End stage renal disease; D63.1 Anemia in chronic kidney disease; Z82.49 Family history of ischemic heart disease and other diseases of the circulatory system; Z88.8 Allergy status to other drugs, medicaments and biological substances; E78.5 Hyperlipidemia, unspecified; E66.01 Morbid (severe) obesity due to excess calories; Z99.2 Dependence on renal dialysis; Z68.41 Body mass index [BMI] 40.0-44.9, adult; E11.51 Type 2 diabetes mellitus with diabetic peripheral angiopathy without gangrene; I25.10 Atherosclerotic heart disease of native coronary artery without angina pectoris; Z79.82 Long term (current) use of aspirin; Z79.4 Long term (current) use of insulin
CPT/HCPCS: 36415 ×4; 36430; 43239; 43255; 80048; 80053 ×3; 82948 ×4; 84484; 85025 ×3; 85610; 85730; 86850; 86900; 86920; 87340; 88305; 88312; 90937; 96372; 99284; C9113 ×2; G0378 ×4; J1610; J1815; J2001; J2250; J2704; J7030 ×2; J7050; P9016

== ENCOUNTER → 2019-09-29 | Day surgery (SDC) | payer MEDICARE, OTHER ==
[2019-09-24 15:53] LABS: BASOPHILS % 0.4 % (0.0-1.0); EOSINOPHILS # (AUTO) 0.3 (0.0-0.4); EOSINOPHILS % 3.6 % (0.0-6.0); HEMATOCRIT 42.7 % (34.2-44.1); LYMPHOCYTES # (AUTO) 0.8 (1.0-3.2); LYMPHOCYTES % 10.1 % (18.0-39.1); MEAN CORPUSCULAR HEMOGLOBIN 25.1 pg (28-32); MEAN CORPUSCULAR HGB CONC 28.1 g/dL (31-35); MEAN CORPUSCULAR VOLUME 89.3 fL (81-99); MONOCYTES # (AUTO) 0.5 (0.2-0.8); MONOCYTES % 6.7 % (4.4-11.3); NEUTROPHILS # (AUTO) 5.9 (2.1-6.9); NEUTROPHILS % 78.9 % (38.7-80.0); PLATELET COUNT 174 x10e3/uL (140-360); RED BLOOD COUNT 4.78 x10e6/uL (3.6-5.1); RED CELL DISTRIBUTION WIDTH 17.3 % (11.7-14.4)
[2019-09-24 16:39] LABS: ALBUMIN 3.6 g/dL (3.5-5.0); ALBUMIN/GLOBULIN RATIO 0.9 (0.8-2.0); ANION GAP 14.9 mmol/L (8-16); CALCIUM 9.7 mg/dL (8.4-10.2); CREATININE, SERUM 7.81 mg/dL (0.57-1.11)
[2019-09-24 16:48] LABS: POTASSIUM 5.9 mmol/L (3.5-5.1)
[2019-09-29] VITALS (12 sets, daily range): BP systolic 131–187; BP diastolic 65–96
[~2019-09-29] VITALS: Ht 157.5 cm; Wt 95.3 kg
[~2019-09-29] MED LIST changes: +ALPRAZOLAM 0.5 MG TAB ONE; +ATORVASTATIN CA20 MG PO; +BACTRIM DS TAB1 EACH PO; +DIPHENHYDRAMINE HCL 25 MG CAP ONE; +FENTANYL CITRATE/PF 100MCG/2 ML INJ ONE; +GABAPENTIN300 MG PO; +HEPARIN SOD (PORCINE) 1000 UNIT/ML 30ML ONE; +HEPARIN SOD/SOD CHLORIDE 2,000 ML ONE; +IOPAMIDOL 300MG/ML 100 ML INFUS..BTL IV ONE; +LIDOCAINE HCL 2% LOCAL 20 ML VIAL ONE; +MIDAZOLAM HCL 2 MG/2 ML VIAL ONE; +MORPHINE SULFATE INJ 4 MG/ML INJ 1ML ONE; +NITROGLYCERIN/D5W 200 MCG/ML 250 ML ONE; +PROTAMINE SULFATE 10 MG/ML 5 ML VIAL ONE; +PROTONIX20 MG PO; +RENVELA0.8 GM PO; +SODIUM CHLORIDE 0.9% 1000ML 1,000 ML ONE
--- NOTE | 2019-09-29 11:00 | NUR ---
1100aam PREP NOTE PROCEDURAL .................................................................................. Pt in prep CCL#9, prepped for procedure. Alert oriented and appropriate, PERRLA, respirations even and unlabored to room air. Pulses x4 extremities un-equal and faint.Doppler present all PP and rt pt foot 1+ only. Cap fill brisk < 3 sec. bilateral feet semi cool a. Rt foot 1/2 amputee Walks with walker. Skin warm and dry integrity appears intact in general. IV #20 left upper arm by Carlota KOCH and failed previous sticks x3. Presents healthy w/o s/s of infiltration or complaint. Abdomen soft and supple. pt offered toileting, denies need to urinate(anuric dialysis pt last HD Saturday) or defecate. Personal affects with daughter Tyree [phone]. Family at bedside now will leave hospital Pt and family verbalizes understanding of POC. Pre-Op Meds Benadryl and Xanax given at 1130am.Bed low and locked, side rails up x2 and call light at side. Hand off Lobo KOCH and Joe Valdovinos. Staff aware bp cuff maybe screwed due to lack of access arm. Prepped and ready for Peripheral Intention, Dr Hill left femoral artery via rt groin site. mehdi/joe
[2019-09-29 11:31] LABS: ALBUMIN 3.8 g/dL (3.5-5.0); ANION GAP 15.1 mmol/L (8-16); CALCIUM 9.8 mg/dL (8.4-10.2); CREATININE, SERUM 8.3 mg/dL (0.57-1.11); POTASSIUM 5.1 mmol/L (3.5-5.1)
--- NOTE | 2019-09-29 14:30 | NUR ---
1430pm RECEIVING NOTE [employer]............................................................... Bedside report received from AUGUST Azul. Identifierx2. Alert oriented and appropriate, PERRLA, respirations even and unlabored to room air. Pulses x4 extremities equal and strong. Pedal pulses PT/DP X4 doppler and marked. Cap fill brisk < 3 sec. RT manual pull ok with act less 160 Protamine infusion completed. Skin warm and dry integrity appears D/I. IV 20g to left upper arm, presents healthy w/o s/s of infiltration or complaint. Abdomen soft and supple. pt offered toileting, denies need to urinate or defecate. No personal affects with patient. Family at bedside. Pt and family verbalizes understanding of POC. Currently w/o complaint of pain or need. -mehdi/rn
--- NOTE | 2019-09-29 19:15 | NUR ---
1915pm SALES AUDIT CLERK RECOVERY DISCHARGE NURSING NOTE Pt meets DC criteria.Rt groin assessed for s/s of complication and presence of hematoma. Skin warm, dry, no discolor, and pulses present. IV removed from left upper arm. Distal tip appears intact. VS WNL. Pt denies pain, sob, or need at this time. Family at Review of discharge paperwork and follow up instructions. verbalized understanding. Pt to wheelchair and transported to front of hospital. Transferred to private vehicle under own strength w/o incident with DC paperwork in hand. - mehdi/joe
--- NOTE | 2019-09-29 19:28 | Operative Report ---
DATE OF PROCEDURE: 09/29/2019 SURGEON: Jonathan Hill MD INDICATIONS: Peripheral arterial disease, claudication with ulceration of the left lower extremity. COMPLICATIONS: None. BLOOD LOSS: Minimal. PROCEDURES PERFORMED: 1. Abdominal aorta catheter placement, abdominal aortogram. 2. Bilateral lower extremity angiograms. 3. Selective catheter placement from the right femoral artery to the left superficial femoral artery. 4. Atherectomy of the distal left superficial femoral and popliteal arteries with balloon angioplasty. 5. Secondary thrombectomy of the left popliteal artery. DESCRIPTION OF PROCEDURE: Access was obtained in the right femoral artery. A 6-Frisian sheath was placed. Abdominal aortogram demonstrated heavily calcified abdominal aorta and iliacs. Left common iliac stent was patent. Bilateral external iliac arteries had 50% stenosis. The catheter was then advanced from the right femoral artery to left superficial femoral artery, 50% ostial left femoral artery stenosis. Stent in the proximal left femoral artery is patent. Diffuse disease in the left femoral artery with 80% to 90%, focal stenosis in the distal left superficial femoral artery, 50% stenosis of the tibioperoneal trunk. Single-vessel runoff via the peroneal artery. Anterior and posterior tibial arteries, the left occluded. Right femoral artery is occluded. Femoral-popliteal bypass was patent. Previous stent in the femoral-popliteal bypass had 50% in-stent restenosis. A decision was made to intervene on the left femoral artery. The patient received intravenous heparin for anticoagulation. The lesions were crossed using a Glidewire. A SpiderFX FilterWire was deployed. Directional atherectomy using a HawkOne device was performed followed by balloon angioplasty with a 5 mm drug balloon excellent. Single-vessel runoff. No complications. Right groin sheath was removed under manual pressure. The patient discharged home same day. Jonathan Hill MD KSB/MODL /[id number]
== END | disposition home or self-care (01) ==
LOC: CATH LAB 09:15
PROVIDERS: ATTEND Internal Medicine Interventional Cardiology
DX: I70.249 Atherosclerosis of native arteries of left leg with ulceration of unspecified site (principal); I82.409 Acute embolism and thrombosis of unspecified deep veins of unspecified lower extremity; I25.810 Atherosclerosis of coronary artery bypass graft(s) without angina pectoris; E11.22 Type 2 diabetes mellitus with diabetic chronic kidney disease; I13.11 Hypertensive heart and chronic kidney disease without heart failure, with stage 5 chronic kidney disease, or end stage renal disease; N18.6 End stage renal disease; Z01.812 Encounter for preprocedural laboratory examination; Z11.59 Encounter for screening for other viral diseases; Z79.82 Long term (current) use of aspirin; Z79.02 Long term (current) use of antithrombotics/antiplatelets; Z68.38 Body mass index [BMI] 38.0-38.9, adult; Z95.1 Presence of aortocoronary bypass graft; Z95.820 Peripheral vascular angioplasty status with implants and grafts
CPT/HCPCS: 36415 ×2; 37186; 37225; 75625; 75710; 80053 ×2; 82948; 85025; 87635; C1714; C1769; J1644; J2001; J2250; J2270; J2720; J3010; J7030; Q9967; 36247; 99152; 99153; C1884; U0002

== ENCOUNTER → 2023-01-10 | Day surgery (SDC) | payer MEDICARE ==
[2023-01-08 13:11] LABS: BASOPHILS % 0.5 % (0.0-1.0); EOSINOPHILS # (AUTO) 0.2 (0.0-0.4); EOSINOPHILS % 3.5 % (0.0-6.0); HEMATOCRIT 33.1 % (34.2-44.1); HEMOGLOBIN 10.4 g/dL (12.0-16.0); LYMPHOCYTES # (AUTO) 0.8 (1.0-3.2); LYMPHOCYTES % 13.6 % (18.0-39.1); MEAN CORPUSCULAR HEMOGLOBIN 30.1 pg (28-32); MEAN CORPUSCULAR HGB CONC 31.4 g/dL (31-35); MEAN CORPUSCULAR VOLUME 95.7 fL (81-99); MONOCYTES # (AUTO) 0.4 (0.2-0.8); MONOCYTES % 7.1 % (4.4-11.3); NEUTROPHILS # (AUTO) 4.2 (2.1-6.9); NEUTROPHILS % 75.1 % (38.7-80.0); PLATELET COUNT 116 x10e3/uL (140-360); RED BLOOD COUNT 3.46 x10e6/uL (3.6-5.1); RED CELL DISTRIBUTION WIDTH 13.8 % (11.7-14.4); WHITE BLOOD COUNT 5.65 x10e3/uL (4.8-10.8)
[2023-01-08 13:34] LABS: ALBUMIN 3.9 g/dL (3.5-5.0); ALBUMIN/GLOBULIN RATIO 1.2 (0.8-2.0); BILIRUBIN,TOTAL 0.7 mg/dL (0.2-1.2); CALCIUM 8.5 mg/dL (8.4-10.2); CREATININE, SERUM 7.14 mg/dL (0.57-1.11); TOTAL PROTEIN 7.1 g/dL (6.5-8.1)
[~2023-01-10] VITALS: Ht 157.5 cm; Wt 86.2 kg
[2023-01-10] VITALS (17 sets, daily range): BP systolic 69–177; BP diastolic 47–153; PULSE 64–89; RESP 8–23; O2SAT 97–100
[~2023-01-10] MED LIST changes: -ALPRAZOLAM 0.5 MG TAB ONE; -DIPHENHYDRAMINE HCL 25 MG CAP ONE; +ELIQUIS2.5 MG PO; +HYDRALAZINE HCL 20 MG/ML VIAL ONE; +HYDROCODONE/APAP 5MG-325MG TAB ONE; -IOPAMIDOL 300MG/ML 100 ML INFUS..BTL IV ONE; +IOPAMIDOL 370 MG/ML 100 ML INFUS..BTL INJ ONE; -MORPHINE SULFATE INJ 4 MG/ML INJ 1ML ONE; +Morphine 4mg INJECTION 4 MG/ML INJ ONE; +NIFEDIPINE ER30 M1 PO; +ONDANSETRON HCL INJ 2MG/ML 2ML 2 MG/ML VIAL ONE; -PROTAMINE SULFATE 10 MG/ML 5 ML VIAL ONE
== END | disposition home or self-care (01) ==
LOC: CATH LAB 07:54
PROVIDERS: ATTEND Internal Medicine Cardiovascular Disease
DX: I25.118 Atherosclerotic heart disease of native coronary artery with other forms of angina pectoris (principal); I25.718 Atherosclerosis of autologous vein coronary artery bypass graft(s) with other forms of angina pectoris; E11.22 Type 2 diabetes mellitus with diabetic chronic kidney disease; I12.0 Hypertensive chronic kidney disease with stage 5 chronic kidney disease or end stage renal disease; N18.6 End stage renal disease; Z99.2 Dependence on renal dialysis; Z79.4 Long term (current) use of insulin; I73.9 Peripheral vascular disease, unspecified; E78.00 Pure hypercholesterolemia, unspecified; Z01.812 Encounter for preprocedural laboratory examination; Z79.899 Other long term (current) drug therapy; Z79.01 Long term (current) use of anticoagulants; Z79.02 Long term (current) use of antithrombotics/antiplatelets; Z79.82 Long term (current) use of aspirin
CPT/HCPCS: 36415; 75605; 80053; 80061; 85025; 92920; 93459; C1769 ×2; C1887 ×2; J0360; J1644; J2001; J2250; J2270; J2405; J3010; J7030; Q9967; 99152; 99153